=== PATIENT | female | born 1945 | race Asian ===

== ENCOUNTER 2018-08-12 15:44 | Inpatient (IN) | payer MEDICARE, BC ==
[2018-08-12] MEDS: FAMOTIDINE 20 MG INJ IV (17:03)
[2018-08-12] MEDS: ONDANSETRON 4 MG INJ IV (17:03)
[2018-08-12] MEDS: KETOROLAC 15 MG INJ IV (17:04)
[2018-08-12] MEDS: SOD CHLORIDE 0.9% 500 ML IV (17:05)
[2018-08-12 17:21] LABS: ADD MAN DIFF? NO
[2018-08-12 17:23] LABS: WHITE BLOOD COUNT 7.8 10^3/ul (4.8-10.8)
[2018-08-12 17:23] LABS: ABNORMAL IP MESSAGE 1; BASOPHILS % 0.1 % (0.0-2.0); EOSINOPHILS % 0.1 % (0.0-7.0); HEMATOCRIT 41.2 % (37.0-47.0); HEMOGLOBIN 12.4 g/dl (12.0-16.0); LYMPHOCYTES # 0.5 10^3/ul (0.8-2.9); LYMPHOCYTES % 6.2 % (15.0-51.0); MEAN CORPUSCULAR HEMOGLOBIN 25.7 pg (29.0-33.0); MEAN CORPUSCULAR HGB CONC 30.1 g/dl (32.0-37.0); MEAN CORPUSCULAR VOLUME 85.5 fl (82.0-101.0); MEAN PLATELET VOLUME 9.2 fl (7.4-10.4); MONOCYTE # 0.5 10^3/ul (0.3-0.9); NEUTROPHIL # 6.8 10^3/ul (1.6-7.5); NEUTROPHILS % 87.2 % (39.0-77.0); PLATELET COUNT 321 10^3/UL (140-415); RED BLOOD COUNT 4.82 10^6/ul (4.20-5.40); RED CELL DISTRIBUTION WIDTH 15.4 % (11.5-14.5)
[2018-08-12 17:37] LABS: POSITIVE DIFF @See below
[2018-08-12 17:40] LABS: ALANINE AMINOTRANSFERASE 16 IU/L (13-69); ALBUMIN 4.1 g/dl (3.3-4.9); ALBUMIN/GLOBULIN RATIO 0.91; ALKALINE PHOSPHATASE 155 IU/L (42-121); ANION GAP 17 (5-13); ASPARTATE AMINO TRANSFERASE 38 IU/L (15-46); BILIRUBIN,INDIRECT 0.1 mg/dl (0-1.1); BILIRUBIN,TOTAL 0.1 mg/dl (0.2-1.3); BLOOD UREA NITROGEN 27 mg/dl (7-20); CALCIUM 9.4 mg/dl (8.4-10.2); CARBON DIOXIDE 20 mmol/L (21-31); CHLORIDE 105 mmol/L (97-110); CREATININE 1.09 mg/dl (0.44-1.00); GLUCOSE 122 mg/dl (70-220); LIPASE 58 U/L (23-300); SODIUM 142 mmol/L (135-144); TOTAL PROTEIN 8.6 g/dl (6.1-8.1)
[2018-08-12 17:54] LABS: TROPONIN-I < 0.012 ng/ml (0.000-0.120)
[2018-08-12] MEDS ORDERED: SOD CHLORIDE 0.9% 100 ML (18:08)
[2018-08-12] MEDS ORDERED: IODIXANOL LOCM 100 ML BTL (18:08)
[2018-08-12 18:12] LABS: ADD UMIC YES; UR AMORPHOUS CRYSTAL FEW /HPF (NONE SEEN); UR ASCORBIC ACID 40 mg/dL (NEGATIVE); UR BACTERIA FEW /HPF (NONE SEEN); UR BILIRUBIN (Dip) 1+ mg/dL (NEGATIVE); UR BLOOD (Dip) NEGATIVE (NEGATIVE); UR CLARITY CLOUDY (CLEAR); UR COLOR AMBER (YELLOW); UR GLUCOSE (Dip) NEGATIVE (NEGATIVE); UR GRANULAR CAST FEW /HPF (NONE SEEN); UR KETONES (Dip) NEGATIVE (NEGATIVE); UR LEUKOCYTE ESTERASE (Dip) TRACE Leu/ul (NEGATIVE); UR MUCUS FEW /HPF (NONE SEEN); UR NITRITE (Dip) NEGATIVE (NEGATIVE); UR RBC 7 /HPF (0-5); UR SPECIFIC GRAVITY (Dip) 1.027 (1.003-1.030); UR SQUAMOUS EPITHELIAL CELL FEW /HPF (FEW); UR TOTAL PROTEIN (Dip) 1+ mg/dl (NEGATIVE); UR UROBILINOGEN (Dip) NEGATIVE (NEGATIVE); UR WBC 10 /HPF (0-5)
[2018-08-12] MEDS ORDERED: ONDANSETRON 4 MG INJ IV (23:00)
[2018-08-12] MEDS ORDERED: NACL 0.9% 3 ML SYG IV (23:00)
[2018-08-13] MEDS: SOD CHLORIDE 0.9% 1,000 ML IV ×3 (00:02→09:24)
[2018-08-13] MEDS: MAGNESIUM SULFATE 1 GM/D5W 100 ML IVPB (00:02)
[2018-08-13] MEDS: CEFTRIAXONE 1 GM/50 ML (PMX) 50 ML IVPB (02:22)
[2018-08-13 05:39] LABS: ADD MAN DIFF? NO
[2018-08-13 05:42] LABS: BASOPHILS % 0.1 % (0.0-2.0); EOSINOPHILS % 0.4 % (0.0-7.0); HEMATOCRIT 40.7 % (37.0-47.0); HEMOGLOBIN 12.2 g/dl (12.0-16.0); LYMPHOCYTES # 0.7 10^3/ul (0.8-2.9); LYMPHOCYTES % 9.1 % (15.0-51.0); MEAN CORPUSCULAR HEMOGLOBIN 26.1 pg (29.0-33.0); MEAN PLATELET VOLUME 9.1 fl (7.4-10.4); MONOCYTE # 0.4 10^3/ul (0.3-0.9); MONOCYTES % 6.1 % (0.0-11.0); NEUTROPHILS % 83.7 % (39.0-77.0); PLATELET COUNT 290 10^3/UL (140-415); RED BLOOD COUNT 4.68 10^6/ul (4.20-5.40); RED CELL DISTRIBUTION WIDTH 15.7 % (11.5-14.5)
[2018-08-13 05:42] LABS: WHITE BLOOD COUNT 7.2 10^3/ul (4.8-10.8)
[2018-08-13 06:02] LABS: ALANINE AMINOTRANSFERASE 27 IU/L (13-69); ALBUMIN 3.9 g/dl (3.3-4.9); ALBUMIN/GLOBULIN RATIO 1.05; ALKALINE PHOSPHATASE 128 IU/L (42-121); ANION GAP 17 (5-13); ASPARTATE AMINO TRANSFERASE 39 IU/L (15-46); BLOOD UREA NITROGEN 33 mg/dl (7-20); CARBON DIOXIDE 23 mmol/L (21-31); CHLORIDE 101 mmol/L (97-110); CHOL/HDL RATIO 4.1 RATIO; CHOLESTEROL 163 mg/dl (100-200); GLUCOSE 99 mg/dl (70-220); HDL CHOLESTEROL 39 mg/dl (33-92); LDL CHOLESTEROL,CALCULATED 98 mg/dl; MAGNESIUM 2.2 mg/dl (1.7-2.5); POTASSIUM 4.1 mmol/L (3.5-5.1); SODIUM 141 mmol/L (135-144); TOTAL PROTEIN 7.6 g/dl (6.1-8.1)
[2018-08-13 06:14] LABS: TRIGLYCERIDES 132 mg/dl (0-149)
[2018-08-13 06:19] LABS: FREE THYROXINE INDEX (Calc) 2.19 ug/ml (0.65-3.89); T3 UPTAKE 35.3 % (23.5-40.5); T4 (THYROXINE) 6.2 ug/dl (5.5-11.0)
[2018-08-13 07:03] LABS: HEMOGLOBIN A1C 5.5 % (0-5.9)
[2018-08-13 08:13] LABS: FREE T3 2.36 pg/ml (2.77-5.27)
[2018-08-13] MEDS ORDERED: ENOXAPARIN 30 MG/0.3 ML SYG SC (09:00)
[2018-08-13] MEDS: INFLUENZA VIRUS VACCINE 0.5 ML (DISPENSING) IM* (09:00)
[2018-08-13] MEDS: HEPARIN 5,000 UNIT/1 ML VIAL SC ×3 (09:30→21:02)
[2018-08-13] MEDS ORDERED: SENNA TAB PO (11:30)
[2018-08-13] MEDS: METHIMAZOLE 5 MG TAB PO (12:16)
[2018-08-13 16:39] LABS: ADD UMIC YES; UR ASCORBIC ACID 40 mg/dL (NEGATIVE); UR BACTERIA FEW /HPF (NONE SEEN); UR BILIRUBIN (Dip) NEGATIVE (NEGATIVE); UR BLOOD (Dip) 1+ mg/dL (NEGATIVE); UR CLARITY SLIGHTLY CLOUDY (CLEAR); UR COLOR AMBER (YELLOW); UR GLUCOSE (Dip) NEGATIVE (NEGATIVE); UR KETONES (Dip) NEGATIVE (NEGATIVE); UR LEUKOCYTE ESTERASE (Dip) TRACE Leu/ul (NEGATIVE); UR MUCUS FEW /HPF (NONE SEEN); UR NITRITE (Dip) NEGATIVE (NEGATIVE); UR RBC 16 /HPF (0-5); UR SPECIFIC GRAVITY (Dip) 1.049 (1.003-1.030); UR SQUAMOUS EPITHELIAL CELL FEW /HPF (FEW); UR TOTAL PROTEIN (Dip) 1+ mg/dl (NEGATIVE); UR UROBILINOGEN (Dip) NEGATIVE (NEGATIVE); UR WBC 8 /HPF (0-5)
[2018-08-13 17:00] LABS: SODIUM,URINE RANDOM 84 mmol/L (30-90)
[2018-08-13 17:00] LABS: CREATININE,URINE RANDOM 125.16 mg/dl (20-320)
[2018-08-13] MEDS: DOCUSATE SODIUM 100 MG CAP PO ×2 (21:00→21:01)
[2018-08-14] MEDS: SOD CHLORIDE 0.9% 1,000 ML IV (01:39)
[2018-08-14] MEDS: ACETAMINOPHEN 325 MG TAB PO (03:41)
[2018-08-14] MEDS: HEPARIN 5,000 UNIT/1 ML VIAL SC ×3 (05:10→21:36)
[2018-08-14 07:10] LABS: ADD MAN DIFF? NO
[2018-08-14 07:20] LABS: WHITE BLOOD COUNT 6.3 10^3/ul (4.8-10.8)
[2018-08-14 07:20] LABS: BASOPHILS % 0.3 % (0.0-2.0); EOSINOPHILS # 0.1 10^3/ul (0.0-0.5); EOSINOPHILS % 1.6 % (0.0-7.0); HEMATOCRIT 36.7 % (37.0-47.0); HEMOGLOBIN 11.2 g/dl (12.0-16.0); LYMPHOCYTES # 1.2 10^3/ul (0.8-2.9); LYMPHOCYTES % 18.6 % (15.0-51.0); MEAN CORPUSCULAR HGB CONC 30.5 g/dl (32.0-37.0); MEAN CORPUSCULAR VOLUME 85.3 fl (82.0-101.0); MEAN PLATELET VOLUME 9.3 fl (7.4-10.4); MONOCYTE # 0.5 10^3/ul (0.3-0.9); MONOCYTES % 8.3 % (0.0-11.0); NEUTROPHIL # 4.5 10^3/ul (1.6-7.5); PLATELET COUNT 272 10^3/UL (140-415); RED CELL DISTRIBUTION WIDTH 15.3 % (11.5-14.5)
[2018-08-14 07:51] LABS: ANION GAP 15 (5-13); BLOOD UREA NITROGEN 28 mg/dl (7-20); CALCIUM 8.8 mg/dl (8.4-10.2); CARBON DIOXIDE 19 mmol/L (21-31); CHLORIDE 106 mmol/L (97-110); CREATININE 1.07 mg/dl (0.44-1.00); GLUCOSE 84 mg/dl (70-220); PHOSPHORUS 4.1 mg/dl (2.5-4.9); POTASSIUM 4.4 mmol/L (3.5-5.1); SODIUM 140 mmol/L (135-144)
[2018-08-14] MEDS: DOCUSATE SODIUM 100 MG CAP PO ×2 (09:00→21:00)
[2018-08-14] MEDS: DULOXETINE 30 MG CAP DR PO (09:40)
[2018-08-14] MEDS: METHIMAZOLE 5 MG TAB PO (09:41)
[2018-08-14 10:29] LABS: OCCULT BLOOD STOOL NEGATIVE (NEGATIVE)
[2018-08-14 12:56] LABS: CREATININE, RANDOM URINE 125 mg/dL (20-275); MICROALBUMIN 1.8 mg/dL; MICROALBUMIN/CREATININE RATIO 14 (<30)
[2018-08-15 06:08] LABS: ADD MAN DIFF? NO
[2018-08-15 06:19] LABS: WHITE BLOOD COUNT 5.7 10^3/ul (4.8-10.8)
[2018-08-15 06:19] LABS: BASOPHILS % 0.2 % (0.0-2.0); EOSINOPHILS # 0.1 10^3/ul (0.0-0.5); EOSINOPHILS % 1.4 % (0.0-7.0); HEMATOCRIT 36.9 % (37.0-47.0); HEMOGLOBIN 11.5 g/dl (12.0-16.0); LYMPHOCYTES % 17.5 % (15.0-51.0); MEAN CORPUSCULAR HEMOGLOBIN 25.8 pg (29.0-33.0); MEAN CORPUSCULAR HGB CONC 31.2 g/dl (32.0-37.0); MEAN CORPUSCULAR VOLUME 82.9 fl (82.0-101.0); MONOCYTE # 0.4 10^3/ul (0.3-0.9); MONOCYTES % 7.6 % (0.0-11.0); NEUTROPHIL # 4.1 10^3/ul (1.6-7.5); NEUTROPHILS % 72.9 % (39.0-77.0); PLATELET COUNT 289 10^3/UL (140-415); RED BLOOD COUNT 4.45 10^6/ul (4.20-5.40); RED CELL DISTRIBUTION WIDTH 14.7 % (11.5-14.5)
[2018-08-15 06:52] LABS: ANION GAP 14 (5-13); BLOOD UREA NITROGEN 20 mg/dl (7-20); CALCIUM 9.3 mg/dl (8.4-10.2); CARBON DIOXIDE 22 mmol/L (21-31); CHLORIDE 106 mmol/L (97-110); CREATININE 0.91 mg/dl (0.44-1.00); GLUCOSE 84 mg/dl (70-220); PHOSPHORUS 3.6 mg/dl (2.5-4.9); POTASSIUM 4.3 mmol/L (3.5-5.1); SODIUM 142 mmol/L (135-144)
[2018-08-15] MEDS: HEPARIN 5,000 UNIT/1 ML VIAL SC ×2 (07:02→13:53)
[2018-08-15] MEDS: DOCUSATE SODIUM 100 MG CAP PO (08:42)
[2018-08-15] MEDS: DULOXETINE 30 MG CAP DR PO (08:43)
[2018-08-15] MEDS: AMLODIPINE 5 MG TAB PO (09:00)
[2018-08-15] MEDS: METHIMAZOLE 5 MG TAB PO (10:30)
[2018-08-15] MEDS: AMLODIPINE 2.5 MG TAB PO (10:30)
[2018-08-15] MEDS: BALSAM PERU/CASTOR OIL 60 GM TUBE TOP (13:53)
== END 2018-08-15 14:44 | disposition home health service (06) | DRG 391 ==
LOC: 6WM 22:48 → E/R 15:44 → PP2 08-13 08:07
DX: K52.29 Other allergic and dietetic gastroenteritis and colitis (principal); G92 Toxic encephalopathy; N17.0 Acute kidney failure with tubular necrosis; K56.7 Ileus, unspecified; N39.0 Urinary tract infection, site not specified; I10 Essential (primary) hypertension; E78.5 Hyperlipidemia, unspecified; Z91.013 Allergy to seafood; F32.9 Major depressive disorder, single episode, unspecified; E03.9 Hypothyroidism, unspecified
CPT/HCPCS: 36415; 70450; 74018; 74177; 76775; 80048; 80053; 80061; 81001; 81003; 82043; 82270; 83036; 83690; 83735; 84100; 84155; 84300; 84436; 84443; 84479; 84481; 84484; 85025; 87045; 87177; 87205; 90686; 93005; 96374; 96375; 97162; 99217; 99285-25; G0378

== ENCOUNTER 2019-01-12 19:58 | Inpatient (IN) | payer BC, MEDICARE ==
[2019-01-12] MEDS: LACTATED RINGER'S 1,000 ML IV (20:39)
[2019-01-12] MEDS: SOD CHLORIDE 0.9% 1,000 ML IV (20:40)
[2019-01-12 20:44] LABS: ADD MAN DIFF? NO
[2019-01-12 20:45] LABS: BASOPHILS % 0.4 % (0.0-2.0); EOSINOPHILS # 0.2 10^3/ul (0.0-0.5); EOSINOPHILS % 2.1 % (0.0-7.0); HEMOGLOBIN 11.6 g/dl (12.0-16.0); LYMPHOCYTES % 12.9 % (15.0-51.0); MEAN CORPUSCULAR HEMOGLOBIN 25.8 pg (29.0-33.0); MEAN CORPUSCULAR HGB CONC 29.7 g/dl (32.0-37.0); MEAN CORPUSCULAR VOLUME 86.9 fl (82.0-101.0); MEAN PLATELET VOLUME 9.8 fl (7.4-10.4); MONOCYTE # 0.5 10^3/ul (0.3-0.9); MONOCYTES % 6.2 % (0.0-11.0); NEUTROPHIL # 6.2 10^3/ul (1.6-7.5); NEUTROPHILS % 77.9 % (39.0-77.0); PLATELET COUNT 251 10^3/UL (140-415); RED BLOOD COUNT 4.49 10^6/ul (4.20-5.40)
[2019-01-12 21:03] LABS: ALANINE AMINOTRANSFERASE 25 IU/L (13-69); ALBUMIN 4.1 g/dl (3.3-4.9); ALBUMIN/GLOBULIN RATIO 0.93; ALKALINE PHOSPHATASE 167 IU/L (42-121); ANION GAP 9 (5-13); ASPARTATE AMINO TRANSFERASE 30 IU/L (15-46); BILIRUBIN,INDIRECT 0.2 mg/dl (0-1.1); BILIRUBIN,TOTAL 0.2 mg/dl (0.2-1.3); BLOOD UREA NITROGEN 28 mg/dl (7-20); CALCIUM 9.2 mg/dl (8.4-10.2); CARBON DIOXIDE 28 mmol/L (21-31); CHLORIDE 102 mmol/L (97-110); CREATININE 0.92 mg/dl (0.44-1.00); GLUCOSE 162 mg/dl (70-220); LIPASE 167 U/L (23-300); POTASSIUM 4.4 mmol/L (3.5-5.1); SODIUM 139 mmol/L (135-144); TOTAL PROTEIN 8.5 g/dl (6.1-8.1)
[2019-01-12 21:13] LABS: TROPONIN-I < 0.012 ng/ml (0.000-0.120)
[2019-01-12 21:38] LABS: ADD UMIC YES; UR ASCORBIC ACID 40 mg/dL (NEGATIVE); UR BACTERIA FEW /HPF (NONE SEEN); UR BILIRUBIN (Dip) NEGATIVE (NEGATIVE); UR BLOOD (Dip) NEGATIVE (NEGATIVE); UR CLARITY CLOUDY (CLEAR); UR COLOR AMBER (YELLOW); UR GLUCOSE (Dip) NEGATIVE (NEGATIVE); UR KETONES (Dip) NEGATIVE (NEGATIVE); UR LEUKOCYTE ESTERASE (Dip) 1+ Leu/ul (NEGATIVE); UR NITRITE (Dip) POSITIVE (NEGATIVE); UR RBC 5 /HPF (0-5); UR SPECIFIC GRAVITY (Dip) 1.018 (1.003-1.030); UR SQUAMOUS EPITHELIAL CELL FEW /HPF (FEW); UR TOTAL PROTEIN (Dip) NEGATIVE (NEGATIVE); UR UROBILINOGEN (Dip) NEGATIVE (NEGATIVE); UR WBC 14 /HPF (0-5)
[2019-01-12] MEDS ORDERED: ONDANSETRON 4 MG INJ IV (22:00)
[2019-01-12] MEDS ORDERED: ACETAMINOPHEN 325 MG TAB PO (22:00)
[2019-01-12] MEDS ORDERED: BISACODYL (EC) 5 MG TAB PO (22:00)
[2019-01-12] MEDS ORDERED: NACL 0.9% 3 ML SYG IV (22:00)
[2019-01-12] MEDS ORDERED: DOCUSATE SODIUM 100 MG CAP PO (22:00)
[2019-01-12] MEDS: CEFTRIAXONE 1 GM/50 ML (PMX) 50 ML IVPB (22:08)
[2019-01-12 22:53] LABS: CREATINE KINASE 155 IU/L (23-200)
[2019-01-12] MEDS ORDERED: hydrALAzine 20 MG INJ IV (23:00)
[2019-01-12 23:05] LABS: CK INDEX 1.7; TROPONIN-I < 0.012 ng/ml (0.000-0.120)
[2019-01-13] MEDS: LOSARTAN 25 MG TAB PO (01:05)
[2019-01-13] MEDS ORDERED: PANTOPRAZOLE 40 MG INJ IV (01:30)
[2019-01-13] MEDS: DEXAMETHASONE 4 MG/ML 1 ML INJ IV (01:41)
[2019-01-13 03:43] LABS: ADD MAN DIFF? NO
[2019-01-13 03:58] LABS: BASOPHILS % 0.4 % (0.0-2.0); EOSINOPHILS # 0.1 10^3/ul (0.0-0.5); EOSINOPHILS % 1.2 % (0.0-7.0); HEMOGLOBIN 10.3 g/dl (12.0-16.0); LYMPHOCYTES # 0.8 10^3/ul (0.8-2.9); MEAN CORPUSCULAR HEMOGLOBIN 25.9 pg (29.0-33.0); MEAN CORPUSCULAR HGB CONC 30.3 g/dl (32.0-37.0); MEAN CORPUSCULAR VOLUME 85.6 fl (82.0-101.0); MEAN PLATELET VOLUME 9.1 fl (7.4-10.4); MONOCYTE # 0.2 10^3/ul (0.3-0.9); MONOCYTES % 3.1 % (0.0-11.0); NEUTROPHIL # 6.4 10^3/ul (1.6-7.5); NEUTROPHILS % 84.8 % (39.0-77.0); PLATELET COUNT 246 10^3/UL (140-415); RED BLOOD COUNT 3.97 10^6/ul (4.20-5.40); RED CELL DISTRIBUTION WIDTH 14.8 % (11.5-14.5)
[2019-01-13 03:58] LABS: WHITE BLOOD COUNT 7.5 10^3/ul (4.8-10.8)
[2019-01-13 04:01] LABS: CREATINE KINASE 139 IU/L (23-200)
[2019-01-13 04:03] LABS: ALANINE AMINOTRANSFERASE 19 IU/L (13-69); ALBUMIN 3.8 g/dl (3.3-4.9); ALBUMIN/GLOBULIN RATIO 0.95; ALKALINE PHOSPHATASE 158 IU/L (42-121); ANION GAP 9 (5-13); ASPARTATE AMINO TRANSFERASE 24 IU/L (15-46); BILIRUBIN,INDIRECT 0.2 mg/dl (0-1.1); BILIRUBIN,TOTAL 0.2 mg/dl (0.2-1.3); BLOOD UREA NITROGEN 23 mg/dl (7-20); CALCIUM 8.8 mg/dl (8.4-10.2); CARBON DIOXIDE 25 mmol/L (21-31); CHLORIDE 107 mmol/L (97-110); CHOL/HDL RATIO 4.1 RATIO; CHOLESTEROL 145 mg/dl (100-200); CREATININE 0.86 mg/dl (0.44-1.00); GLUCOSE 131 mg/dl (70-220); HDL CHOLESTEROL 35 mg/dl (33-92); LDL CHOLESTEROL,CALCULATED 69 mg/dl; MAGNESIUM 1.7 mg/dl (1.7-2.5); POTASSIUM 4.5 mmol/L (3.5-5.1); SODIUM 141 mmol/L (135-144); TOTAL PROTEIN 7.8 g/dl (6.1-8.1); TRIGLYCERIDES 206 mg/dl (0-149)
[2019-01-13 04:14] LABS: CK INDEX 1.4; CK-MB 1.94 ng/ml (0.0-2.4); TROPONIN-I < 0.012 ng/ml (0.000-0.120)
[2019-01-13 04:19] LABS: HEMOGLOBIN A1C 5.7 % (0-5.9)
[2019-01-13] MEDS ORDERED: LOSARTAN 25 MG TAB PO ×2 (07:30→09:00)
[2019-01-13] MEDS: SOD CHLORIDE 0.9% 1,000 ML IV (09:52)
[2019-01-13] MEDS: AMLODIPINE 2.5 MG TAB PO (09:53)
[2019-01-13] MEDS: METHIMAZOLE 5 MG TAB PO (09:53)
[2019-01-13] MEDS: PANTOPRAZOLE (EC) 40 MG TAB PO (09:53)
[2019-01-13] MEDS: LEVETIRACETAM 500 MG TAB PO (16:52)
[2019-01-13] MEDS ORDERED: LEVETIRACETAM 500 MG TAB PO ×2 (17:00→21:00)
[2019-01-13] MEDS ORDERED: ATORVASTATIN 10 MG TAB PO (21:00)
[2019-01-13] MEDS ORDERED: CEFTRIAXONE 1 GM/50 ML (PMX) 50 ML IVPB (22:00)
[2019-01-14] MEDS ORDERED: LOSARTAN 25 MG TAB PO (09:00)
== END 2019-01-13 17:10 | disposition home or self-care (01) | DRG 86 ==
LOC: E/R 19:58 → ICU 21:48
DX: S06.5X0A Traumatic subdural hemorrhage without loss of consciousness, initial encounter (principal); N39.0 Urinary tract infection, site not specified; E86.0 Dehydration; M54.2 Cervicalgia; B96.20 Unspecified Escherichia coli [E. coli] as the cause of diseases classified elsewhere; E05.90 Thyrotoxicosis, unspecified without thyrotoxic crisis or storm; R55 Syncope and collapse; F41.9 Anxiety disorder, unspecified; I10 Essential (primary) hypertension; K21.9 Gastro-esophageal reflux disease without esophagitis; W18.30XA Fall on same level, unspecified, initial encounter
CPT/HCPCS: 70450; 71045; 72125; 72170; 73562; 80053; 80061; 81001; 82550; 82553; 83036; 83690; 83735; 84443; 84484; 85025; 87081; 87086; 93005; 93306; 93880; 99285-25